=== PATIENT | female | born 1990 | race Caucasian/White ===

== ENCOUNTER 2020-07-06 20:19 | Emergency (ER) | payer OTHER ==
[~2020-07-06] VITALS: Ht 167.6 cm; Wt 75.5 kg
[2020-07-06 20:24] VITALS: TEMP 98.7
[2020-07-06] MEDS ORDERED: PRENATAL TABLET PO (20:35)
[2020-07-06 21:16] LABS: COLLECTION METHOD CATHETER
[2020-07-06 21:19] LABS: BASO % 0.4 % (0.0-2.0); EOS # 0.2 (0.0-0.7); EOS % 2.7 % (0-4.0); GRAN # 5.2 (1.4-6.5); GRAN % 66.3 % (42.2-75.2); HEMATOCRIT 37.9 % (37.0-47.0); HEMOGLOBIN 13.3 g/dl (12.5-16.0); LYMPH # 1.7 (1.2-3.4); LYMPH % 22.1 % (20.0-51.0); MEAN CELL VOLUME 88 fl (80.0-100.0); MEAN CORPUSCULAR HEMOGLOBIN 31 pg (27.0-31.0); MEAN CORPUSCULAR HGB CONC 35 g/dl (33.0-37.0); MEAN PLATELET VOLUME 8.9 fl (7.4-10.4); MONO # 0.6 (0.1-0.6); MONO % 8.2 % (1.7-9.3); PLATELET COUNT 236 K/mm3 (130-400); RED BLOOD COUNT 4.29 M/mm3 (4.10-5.30); REDCELL DISTRIBUTION WIDTH-CV 12.6 % (11.5-14.5)
[2020-07-06 21:24] LABS: PH 6 (5-8); SQUAMOUS EPITHELIAL 0-2 /hpf; URINE APPEARANCE Hazy; URINE BACTERIA Rare /hpf; URINE BILIRUBIN Negative (NEGATIVE); URINE BLOOD Negative (NEGATIVE); URINE COLOR Yellow; URINE GLUCOSE Negative (NEGATIVE); URINE KETONE 1+ (NEGATIVE); URINE LEUKOCYTE ESTERASE 1+ (NEGATIVE); URINE NITRATE Negative (NEGATIVE); URINE PROTEIN(semi-quant) Negative (NEGATIVE); URINE RBC 0-2 /hpf; URINE UROBILINOGEN Negative (NEGATIVE)
[2020-07-06 21:29] LABS: ALBUMIN 4.3 gm/dL (3.5-5.0); BILIRUBIN,TOTAL 0.5 mg/dL (0.0-1.0); CALCIUM 9.2 mg/dL (8.4-10.2); CREATININE, serum 0.46 (0.52-1.25); POTASSIUM 3.7 mmol/L (3.4-5.0); TOTAL PROTEIN 7.3 gm/dL (6.4-8.2)
[2020-07-06 22:42] VITALS: BP 113/74; PULSE 75
== END 2020-07-06 22:42 | disposition home or self-care (01) ==
LOC: COL.ER 20:19
PROVIDERS: Emergency Medicine
DX: O9A.211 Injury, poisoning and certain other consequences of external causes complicating pregnancy, first trimester (principal); S09.90XA Unspecified injury of head, initial encounter; O26.811 Pregnancy related exhaustion and fatigue, first trimester; R55 Syncope and collapse; Z3A.12 12 weeks gestation of pregnancy; Z88.0 Allergy status to penicillin

== ENCOUNTER → 2021-01-09 | Outpatient (CLI) | payer OTHER ==
[~2021-01-09] MED LIST: MOTRIN 800800 MG/TAB PO; PRENATAL TABLET PO; TYLENOL 500MG500 MG PO
== END ==
LOC: ZCOL.LAB 09:53
DX: Z20.822 Contact with and (suspected) exposure to COVID-19 (principal)

== ENCOUNTER 2021-01-14 06:07 | Inpatient (IN) | payer OTHER ==
[~2021-01-14] VITALS: Ht 167.6 cm; Wt 90.1 kg
[2021-01-14] VITALS (51 sets, daily range): BP systolic 99–156; BP diastolic 54–92; PULSE 69–116; TEMP 97.6–98.6
[~2021-01-14 06:07] MED LIST changes: -MOTRIN 800800 MG/TAB PO; -TYLENOL 500MG500 MG PO
[2021-01-14] MEDS ORDERED: TYLENOL 500MG500 MG PO (06:52)
[2021-01-14 07:23] LABS: BASO % 0.3 % (0.0-2.0); GRAN # 5.5 (1.4-6.5); GRAN % 70.7 % (42.2-75.2); HEMOGLOBIN 12.3 g/dl (12.5-16.0); LYMPH # 1.5 (1.2-3.4); LYMPH % 19.4 % (20.0-51.0); MEAN CELL VOLUME 91 fl (80.0-100.0); MEAN CORPUSCULAR HEMOGLOBIN 30 pg (27.0-31.0); MEAN CORPUSCULAR HGB CONC 33 g/dl (33.0-37.0); MONO # 0.7 (0.1-0.6); MONO % 9.5 % (1.7-9.3); PLATELET COUNT 262 K/mm3 (130-400); RED BLOOD COUNT 4.04 M/mm3 (4.10-5.30); REDCELL DISTRIBUTION WIDTH-CV 12.5 % (11.5-14.5)
[2021-01-14 07:29] LABS: HEMATOCRIT 36.9 % (37.0-47.0)
--- NOTE | 2021-01-14 08:37 | NUR ---
ON UNIT ROUNDING ON LABOR PATIENTS AT THIS TIME. SVE /-2. 0337:AROM W/ CLEAR FLUID.
--- NOTE | 2021-01-14 09:11 | NUR ---
0911: MAURILIO NUNN RADIATION ONCOLOGY NURSE NOTIFIED OF EPIDURAL REQUEST. 0940: PT ASSISTED TO EDGE OF BED TO PREPARE FOR EPIDURAL PLACEMENT. LR BOLUS INFUSING. PULSE OX TO FINGER. DIFFICULTY TRACING EFM DUE TO MATERNAL POSITIONING. 1001: TEST DOSE PER MAURILIO NUNN CRNA. PT TOLERATED PROCEDURE WELL. VITAL SIGNS REMAIN STABLE THROUGHOUT.
--- NOTE | 2021-01-14 16:50 | NUR ---
1650: AT BEDSIDE TO ASSESS PT. SVE COMPLETE/READY TO BEGIN PUSHING. PRACTICE PUSH X1 WITH . MOVES HEAD WELL. THIS NURSE CONTINUES TO PUSH WITH PT. 1723: OF VIABLE FEMALE AT THIS TIME PER . PLACED ON MATERNAL ABDOMEN. CARE OF INFANT ASSUMED BY ARACELIS BLACKWELL. CORD CLAMPED X2 AND CUT BY FOB. 1726: OF PLACENTA. PITOCIN BOLUS STARTED PER PROTOCOL. FUNDUS FIRM AT UMBILICUS. LOCHIA WNL. WILL CONTINUE PP RECOVERY.
--- NOTE | 2021-01-14 20:25 | NUR ---
2024- IV TO SALINE LOCK. EPIDURAL CATHETER REMOVED WITHOUT DIFFICULTY. PT ASSISTED TO AMBULATE TO BATHROOM. PT ABLE TO VOID 400ML WITHOUT DIFFICULTY. PT PERFORMS PERICARE. CLEAN GOWN, PAD, AND PANTIES PROVIDED. NORMAL LOCHIA DISCUSSED. 2034- PT AMBULATES TO ROOM 215 WITHOUT DIFFICULTY. BABY AND BELONGINGS WITH PT. PT ORIENTED TO ROOM AND CALL LIGHTS. PLAN OF CARE DISCUSSED AND QUESTIONS ANSWERED. NO FURTHER NEEDS AT THIS TIME.
[2021-01-15 00:27] VITALS: BP 97/64; PULSE 82; TEMP 97.9
[2021-01-15 04:16] VITALS: BP 103/62; PULSE 82; TEMP 98.3
[2021-01-15 08:20] VITALS: BP 97/58; PULSE 72; TEMP 97.8
[2021-01-15] MEDS ORDERED: MOTRIN 800800 MG/TAB PO (09:19)
--- NOTE | 2021-01-15 10:01 | NUR ---
Initial visit; Parents thanked Cloth Shrinking Machine Operator Helper for offering congratulations and God's blessings for the of their daughter. Cloth Shrinking Machine Operator Helper thanked family for choosing [facility].
[2021-01-15 11:50] VITALS: BP 116/72; PULSE 78
[2021-01-15 17:00] VITALS: BP 109/60; PULSE 89; TEMP 98
--- NOTE | 2021-01-15 19:10 | NUR ---
1845 REVIEWED DISCHARGE INSTRUCTIONS WITH PATIENT, DENIES QUESTIONS. DISCHARGE AMBULATORY WITH INFANT AND FOB TO CAR.
== END 2021-01-15 18:55 | disposition home or self-care (01) | DRG 807 ==
LOC: OB 06:07 → LDR 06:07 → OB 14:06
PROVIDERS: ADMIT Obstetrics & Gynecology
PROC: 10E0XZZ Delivery of Products of Conception, External Approach (ICD-10-PCS; principal; 2021-01-14)
PROC: 0HQ9XZZ Repair Perineum Skin, External Approach (ICD-10-PCS; 2021-01-14)
PROC: 10907ZC Drainage of Amniotic Fluid, Therapeutic from Products of Conception, Via Natural or Artificial Opening (ICD-10-PCS; 2021-01-14)
PROC: 3E033VJ Introduction of Other Hormone into Peripheral Vein, Percutaneous Approach (ICD-10-PCS; 2021-01-14)
DX: O99.824 Streptococcus B carrier state complicating childbirth (principal); Z37.0 Single live birth; O70.0 First degree perineal laceration during delivery; Z3A.39 39 weeks gestation of pregnancy
CPT/HCPCS: J2590; J7120